=== PATIENT | male | born 1965 | race Two or more races ===

== ENCOUNTER 2024-11-25 14:36 | Emergency (ER) | payer MEDICAID, SELFPAY ==
[2024-11-25 14:45] VITALS: BP 134/76; PULSE 106; RESP 18; TEMP 38.1; O2SAT 99; BMI 27.7
--- NOTE | 2024-11-25 14:51 | EKG_ITS ---
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
--- NOTE | 2024-11-25 14:51 | XR_ITS ---
EXAMINATION: XR chest 1V ORDERING PROVIDER: Ezequiel Manjarrez NP HISTORY: cough SOB TECHNIQUE: Single portable AP radiograph of the chest. COMPARISON: 03/04/2015, chest radiographs. FINDINGS: Lines and Tubes: None. Lungs: Clear. Pleura: No pneumothorax or pleural effusion. Cardiomediastinal Silhouette: Normal. Soft Tissues/Bones: Normal. IMPRESSION: No acute pulmonary findings.
--- NOTE | 2024-11-25 14:52 | PD.EDRME ---
Rapid Medical Screening Exam E Arrival date/time: 11/25/24 14:36 CC: Persistent cough, chest wall pain, wheezing HPI ongoing since 12 November when the patient was diagnosed with COVID. The patient is diabetic was not been under good glycemic control states his blood sugars been running over 300. Patient is known to be tachycardic with hypertension (history of hypertension claims to take all of his medicines). Admits to intermittent diarrhea denies fever. Chief Complaint: Shortness of Breath/Dyspnea Time Seen by Provider: 11/25/24 14:41 Vital signs: Vital Signs Temperature 100.6 F H 11/25/24 14:45 Pulse Rate 106 H 11/25/24 14:45 Respiratory Rate 18 11/25/24 14:45 Blood Pressure 134/76 H 11/25/24 14:45 Pulse Oximetry (%) 99 11/25/24 14:45 Oxygen Delivery Method Room Air 11/25/24 14:45
[2024-11-25 15:39] LABS: Basophils % (Auto) 0 % (0-2.5); Eosinophils % (Auto) 0 % (0-10); Hematocrit 45.4 % (41.0-53.0); Hemoglobin 15.9 g/dL (13.5-16.0); Immature Granulocytes % (Auto) 0 % (0-0); Immature Granulocytes Auto 0.02 Thou/mm3 (0.00-0.00); Lymphocytes # (Auto) 0.7 Thou/mm3 (1.0-4.8); Lymphocytes % (Auto) 10 % (10-50); Mean Corpuscular Hemoglobin 28.8 pg (25.0-35.0); Mean Corpuscular Volume 82 fL (80-100); Monocytes # (Auto) 0.4 Thou/mm3 (0.0-0.8); Monocytes % (Auto) 5 % (0-12); Neutrophils # (Auto) 6.1 Thou/mm3 (1.8-7.7); Neutrophils % (Auto) 85 % (37-80); Nucleated Red Blood Cell % 0 /100 WBC (0); Platelet Count 147 Thou/mm3 (140-440); RDW Standard Deviation 38.2 fL (35.1-43.9); Red Blood Count 5.52 Miln/mm3 (4.50-5.90); White Blood Count 7.1 Thou/mm3 (3.8-10.6)
[2024-11-25 15:41] LABS: Base Excess, Venous -3 (-3-3); O2 Saturation, Venous 77 % (96-97); PCO2, Venous 36 mmHg (36-56); PO2, Venous 41 mmHg (15-58); pH, Venous 7.39 (7.33-7.66)
[2024-11-25 15:44] LABS: Collection Type, Urine Clean Catch
[2024-11-25 15:46] LABS: Beta Hydroxybutyrate 0.2 mmol/L (<0.6)
[2024-11-25 15:48] LABS: Bilirubin,Urine Negative (Negative); Blood,Urine Negative (Negative); Clarity,Urine Clear (Clear/Hazy); Color,Urine Colorless (Lt Yel-Yel); Glucose, Urine 4+ (Negative); Ketones,Urine Negative (Negative); Leukocyte Esterase,Urine Negative (Negative); Nitrite,Urine Negative (Negative); PH,Urine 6.5 (5.0-7.0); Protein,Urine Negative (Neg - Trace); RBC,Urine 2 /hpf (0-3); Specific Gravity,Urine 1.012 (1.001-1.035); Squamous Epithelial Cell,Urine 1 /hpf (0-5); Urobilinogen,Urine Negative mg/dL (0.0-1.0); WBC,Urine < 1 /hpf (0-5)
[2024-11-25 15:54] LABS: Amphetamine/Methamp Scrn,U Negative (Negative); Barbiturate Screen,Urine Negative (Negative); Benzodiazepines Screen,Urine Negative (Negative); Benzoylecgonine Screen, Ur Negative (Negative); Fentanyl Screen,Urine Negative (Negative); Opiate Screen,Urine Negative (Negative); THC Screen,Urine Negative (Negative)
[2024-11-25 16:08] LABS: Partial Thromboplastin Time 28.5 Seconds (22.0-36.0); Prothrombin Time 11.1 Seconds (9.0-12.2)
[2024-11-25 16:13] LABS: B-Type Natriuretic Peptide < 20 pg/mL (0-100)
[2024-11-25 16:15] VITALS: TEMP 38.1
[2024-11-25] MEDS: ACETAMINOPHEN 500 MG TABLET 1000 MG PO (16:15)
[2024-11-25 16:18] LABS: Alanine Aminotransferase 123 U/L (10-49); Albumin, Serum 4.3 gm/dL (3.5-5.0); Albumin/Globulin Ratio 1.5 (1.2-2.2); Alkaline Phosphatase 87 U/L (46-116); Anion Gap 12 (7-16); Aspartate Amino Transferase 92 U/L (0-34); BUN/Creatinine Ratio 11 Ratio (12-20); Bilirubin,Total 0.8 mg/dL (0.3-1.2); Blood Urea Nitrogen 13 mg/dL (9-23); Carbon Dioxide 23.3 mMol/L (20.0-31.0); Chloride 99 mMol/L (98-107); Creatinine (Component) 1.2 mg/dL (0.6-1.3); Estimated Creatinine Clearance 69.8 mL/min (>60); Globulin 2.9 gm/dL (2.3-3.5); LDH (Lactate Dehydrogenase) 243 U/L (120-246); Magnesium 1.7 mg/dL (1.6-2.6); Osmolality,Calculated 286 (275-295); Sodium 134 mMol/L (136-145); Total Protein 7.2 gm/dL (5.7-8.2); eGFR > 60 See Note
[2024-11-25 16:31] LABS: Glucose 431 mg/dL (74-106)
--- NOTE | 2024-11-25 16:41 | PD.EDSOB ---
ED SOB =RME/HPI General Chief Complaint: Shortness of Breath/Dyspnea Stated Complaint: SOB, COUGH, CONGESTION, RIBCAGE PAIN Time Seen by Provider: 11/25/24 14:41 Arrival date/time: 11/25/24 14:36 RME / HPI RME / HPI Narrative: 58-year-old male patient with significant history of asthma, diabetes mellitus hypertension came in for persistent cough, chest wall pain, wheezing HPI ongoing since 12 November when the patient was diagnosed with COVID. The patient is diabetic was not been under good glycemic control states his blood sugars been running over 300. Patient is known to be tachycardic with hypertension (history of hypertension claims to take all of his medicines). Admits to intermittent diarrhea denies fever. Related Data Home Medications ?Medication ?Instructions ?Recorded ?Confirmed albuterol sulfate 90 mcg/actuation 2 puff inhalation Q4HR PRN DYSPNEA 11/04/14 11/12/21 aerosol inhaler (ProAir HFA) ##0 albuterol sulfate 90 mcg/actuation 90 mcg inhalation PRN PRN Adequate 11/12/21 11/12/21 aerosol inhaler Ventilation fluticasone furoate 100 100 mcg inhalation PRN PRN Allergy 11/12/21 11/12/21 mcg/actuation blister powder for Symptoms inhalation (Arnuity Ellipta) glipizide 10 mg tablet 10 mg PO BID 11/12/21 11/12/21 losartan 100 mg tablet 100 mg PO DAILY 11/12/21 11/12/21 metformin 1,000 mg tablet 500 mg PO BID 11/12/21 11/12/21 semaglutide 0.25 mg or 0.5 mg (2 0.25 mg subcut QWEEK 11/12/21 11/12/21 mg/1.5 mL) subcutaneous pen injector (Ozempic) Previous Rx's ?Medication ?Instructions ?Recorded oseltamivir 75 mg capsule (Tamiflu) 75 mg PO BID 5 days #10 caps 11/25/24 Allergies Allergy/AdvReac Type Severity Reaction Status Date / Time No Known Allergies Allergy Verified 11/25/24 14:40 Review of Systems Review of Systems Narrative Review of Systems: Review of system reviewed and within normal limits except mentioned in HPI ED Exam Narrative Physical exam: VITAL SIGNS: Reviewed. GENERAL APPEARANCE: Alert and interactive, follows commands, no acute distress, HEAD AND FACE: Non-traumatic. ENT: PERRL, pink conjunctivitis, eyelid no trauma, Mucous membrane moist. NECK: Supple, nontender, no nuchal rigidity. CHEST: No tenderness, no crepitus, no paradoxical movement, no retractions. LUNGS: Clear, well ventilated, symmetric, no rales, no wheezing, no ronchi, no stridor, good breath sounds bilaterally. HEART: Regular rate, regular rhythm, no murmur, no gallops. ABDOMEN: Soft, positive bowel sounds, nondistended, no guarding, nontender, no rebound, no masses, RECTAL: Deferred. GENITAL: Deferred. NEUROLOGICAL: Gross motor function intact sensory function intact, Appropriate for age. MUSCULOSKELETAL: low back nontender, full range of motion. EXTREMITIES: Nontender, full range of motion. SKIN: Color pink, dry, no rash, no lacerations, no abrasions, no contusions. LYMPHATICS: Deferred. Course Quality Measures none Orders Category Date Time Status Bedside Influenza A&B Antigen Test NOW Care 11/25/24 14:51 Completed EKG (ED ONLY) *Do not use* NOW Care 11/25/24 14:51 Completed Saline [Insert IV] NOW Care 11/25/24 14:51 Active EKG (ED Only) Stat Exams 11/25/24 14:51 Ordered XR chest 1V Stat Exams 11/25/24 14:51 Completed B-Type Natriuretic Peptide Stat Lab 11/25/24 15:28 Completed Beta Hydroxybutyrate Stat Lab 11/25/24 15:28 Completed CBC Stat Lab 11/25/24 15:28 Completed Comprehensive Metabolic Panel Stat Lab 11/25/24 15:28 Completed Drug Screen,Urine Stat Lab 11/25/24 15:30 Completed LDH (Lactate Dehydrogenase) Stat Lab 11/25/24 15:28 Completed Magnesium Stat Lab 11/25/24 15:28 Completed Partial Thromboplastin Time Stat Lab 11/25/24 15:28 Completed Prothrombin Time with INR Stat Lab 11/25/24 15:28 Completed Urinalysis Stat Lab 11/25/24 15:30 Completed VBG [Venous Blood Gas] Stat Lab 11/25/24 15:28 Completed Acetaminophen Tab [Tylenol ES Tab] Med 11/25/24 15:11 Discontinued 1,000 mg PO X1 ONE Oseltamivir [Tamiflu] Med 11/25/24 16:40 Discontinued 75 mg PO X1 ONE Sodium Chloride 0.9% 1000 ml [Ns] 1,000 ml Med 11/25/24 14:51 Discontinued IV 999 mls/hr Vital Signs Vital signs: Vital Signs Temperature 100.6 F H 11/25/24 14:45 Pulse Rate 106 H 11/25/24 14:45 Respiratory Rate 18 11/25/24 14:45 Blood Pressure 134/76 H 11/25/24 14:45 Pulse Oximetry (%) 99 11/25/24 14:45 Oxygen Delivery Method Room Air 11/25/24 14:45 Shortness of Breath / Dyspnea [facility] Narrative MDM Narrative:: 58-year-old male patient with significant history of asthma, diabetes mellitus hypertension came in for persistent cough, chest wall pain, wheezing HPI ongoing since 12 November when the patient was diagnosed with COVID. The patient is diabetic was not been under good glycemic control states his blood sugars been running over 300. Patient is known to be tachycardic with hypertension (history of hypertension claims to take all of his medicines). Admits to intermittent diarrhea denies fever. Patient tested positive for influenza. Patient's sugar was noted to be 431 with no sign of diabetic ketoacidosis. The rest of the labs unremarkable. Patient was given IV fluids to bring down the blood sugar. Patient was advised to control carbohydrate intake and take his diabetic medications. Patient agrees with plan. Patient was given Tamiflu in the emergency room. Patient appears nontoxic and hemodynamically stable. Patient discharged home and instructed to follow-up with primary care provider in 24 to 48 hours. Instructed to return to the emergency department immediately if worsening of symptoms Patient data External records reviewed:: None Clinical information provided by:: patient Social determinants that could affect healthcare access:: none Patient has the following chronic illnesses:: Diabetes mellitus How is presenting disease/condition affected by chronic disease/condition?: exacerbated by Evaluation data The following diagnostics were reviewed and interpreted by me:: lab results and radiology exam(s) Lab and/or radiology exams considered but not ordered:: None Interpretation Summary: See results in MDM Medications / Prescriptions Medications or Prescriptions considered but not ordered:: None Medication administrations:: Medication Administration History Discontinued Medications Acetaminophen (Acetaminophen 500 Mg Tablet) 1,000 mg PO X1 ONE Stop: 11/25/24 15:12 Last Admin: 11/25/24 16:15 Dose: 1,000 mg Documented By: OA Sodium Chloride (Ns) 1,000 mls @ 999 mls/hr IV .Q1H1M ONE Stop: 11/25/24 15:51 Last Admin: 11/25/24 17:06 Dose: 999 mls/hr Documented By: RAMONA Oseltamivir Phosphate (Oseltamivir 75 Mg Capsule) 75 mg PO X1 ONE Stop: 11/25/24 16:41 Tylenol IV fluids and Consultations Consultation(s) initiated? (list below): No Diagnosis Shortness of Breath Differential Diagnosis: congestive heart failure and community acquired pneumonia Most likely diagnosis given after review of the tests above:: Hyperglycemia, influenza Admission Indicated Admission indicated?: not indicated Admission Request Was there a request for admission?: No Disposition Plan Disposition Plan: Discharge Discharge Attestation Discharge Attestation: The patient was given an opportunity to ask questions and understood the discharge instructions. Discharge instructions specifically effects, indications for sooner follow up or return to the emergency department, and the expected course of current diagnosis. Patient condition: Stable Discharge Plan Plan Patient Disposition: HOME (Self Care) Disposition Comment: stable Prescriptions/Referrals Prescriptions/Med Rec: New oseltamivir [Tamiflu] 75 mg capsule 75 mg PO BID 5 Days Qty: 10 0RF No Action albuterol sulfate [ProAir HFA] 8.5 GM HFA aerosol inhaler 2 puff Inhalation Q4HR PRN (Reason: DYSPNEA) Qty: 0 glipizide 10 mg tablet 10 mg PO BID metformin 1,000 mg tablet 500 mg PO BID albuterol sulfate 90 mcg/actuation HFA aerosol inhaler 90 mcg INHALATION PRN PRN (Reason: Adequate Ventilation) losartan 100 mg tablet 100 mg PO DAILY Arnuity Ellipta 100 mcg/actuation blister with device 100 mcg INHALATION PRN PRN (Reason: Allergy Symptoms) Ozempic 0.25 mg or 0.5 mg(2 mg/1.5 mL) pen injector 0.25 mg SUBCUT QWEEK Referrals: Janny Ji PA-C [Primary Care Provider] - In 1 week Problem List Clinical Impression: Influenza, Hyperglycemia Patient/Caregiver Discharge Instructions Discharge Activity: activity as tolerated Education Materials: ED Influenza (Adult) Additional Instructions: Thank you for the opportunity for serving you today. You are stable for discharged . You are advised to: Follow-up with your PCP in 1 to 2 days Return to ED for worsening of symptoms Increase oral fluids Take medication as prescribed Check your blood sugar frequently and control your carbohydrates intake Print Language: Sudanese Stand Alone Forms: Kendra Award Info., Patient Portal Info Letter PA/REMEDIAL PROJECT MANAGER Supervising Physician PA/REMEDIAL PROJECT MANAGER Supervising Physician: MD Js
[2024-11-25] MEDS: SODIUM CHLORIDE 0.9% 1000 ML 1,000 ML 999 ML IV (17:06)
== END 2024-11-25 19:32 | disposition home or self-care (01) ==
PROVIDERS: Registered Nurse General Practice; Emergency Provider Emergency Medicine; PCP Physician Assistant
DX: J11.1 Influenza due to unidentified influenza virus with other respiratory manifestations (principal); E11.65 Type 2 diabetes mellitus with hyperglycemia; R00.0 Tachycardia, unspecified; I10 Essential (primary) hypertension; Z79.84 Long term (current) use of oral hypoglycemic drugs; Z79.85 Long-term (current) use of injectable non-insulin antidiabetic drugs
CPT/HCPCS: 36415; 71045; 80053; 80307; 81001; 82010; 82803; 83615; 83735; 83880; 85025; 85610; 85730; 87400; 93005; 99284; J7030; A9270

== ENCOUNTER → 2025-07-27 | Outpatient (CLI) | payer MEDICAID, SELFPAY ==
--- NOTE | 2025-07-27 09:45 | XR_ITS ---
Examination: Abdomen sonogram, complete Date and time of exam: July 27, 2025, 0946 hours INDICATIONS: Onset left flank pain beginning 2 months ago. Technique: Multiple real-time grayscale transabdominal sonographic images of the abdomen have been obtained. Findings: Contracted gallbladder No gallstones Gallbladder wall 0.4 cm Common bile duct 0.3 cm Pancreatic head 2.8 cm Aorta not enlarged. Liver 15.5 cm fatty infiltration no focal liver lesions Normal hepatopetal portal venous flow Patent IVC Right kidney 10.9 cm renal cortex 2.1 cm Left kidney 10.7 cm renal cortex 2.8 cm Spleen 10.4 cm IMPRESSION: Recommend repeating the gallbladder portion of the study with fasting
== END | disposition home or self-care (01) ==
LOC: CDIM 09:29
PROVIDERS: PCP Physician Assistant; Referring Provider Physician Assistant; Visit Provider Physician Assistant
DX: R10.9 Unspecified abdominal pain (principal); R74.01 Elevation of levels of liver transaminase levels
CPT/HCPCS: 76700